=== PATIENT | female | born 1955 | race African-American/Black ===

== ENCOUNTER 2022-09-02 17:18 | Emergency (ER) | payer OTHER ==
[~2022-09-02] VITALS: Ht 162.6 cm; Wt 59.0 kg
[2022-09-02] MEDS ORDERED: ONDANSETRON HCL 4MG/2ML INJ IV STA (20:06)
[2022-09-02] MEDS ORDERED: MORPHINE SULFATE 4 MG/ML CPJ (NOT FOR IM USE) IV STA (20:06)
[2022-09-02 20:26] LABS: BASOPHILS % 1.1 % (0.0-2.0); EOSINOPHILS % 2.4 % (0.0-5.0); HEMATOCRIT. 29.2 % (36.0-48.0); HEMOGLOBIN. 9.5 g/dL (12.0-16.0); LYMPHOCYTES % 29.8 % (20.0-50.0); MEAN CORPUSCULAR HEMOGLOBIN 32.4 pg (28.0-32.0); MEAN CORPUSCULAR VOLUME 99.9 fL (81.0-99.0); MEAN PLATELET VOLUME 8.8 fl (7.4-10.4); MONOCYTES % 11.4 % (2.0-8.0); NEUTROPHILS % 55.3 % (40.0-76.0); PLATELET 103 x1000/uL (130-400); RED BLOOD CELL COUNT 2.92 mill/uL (4.2-5.4); RED CELL DISTRIBUTION WIDTH 16.8 % (11.6-14.6)
[2022-09-02 20:30] LABS: CHLORIDE 104 mEq/L (98-107)
[2022-09-02 21:05] LABS: CLARITY URINE CLEAR (CLEAR); COLOR URINE YELLOW (YELLOW); KETONES URINE NEGATIVE (NEGATIVE); LEUKOCYTE ESTERASE URINE NEGATIVE (NEGATIVE); NITRITE URINE NEGATIVE (NEGATIVE); OCCULT BLOOD URINE NEGATIVE (NEGATIVE); PROTEIN URINE NEGATIVE (NEGATIVE); SPECIFIC GRAVITY URINE 1.039 (1.005-1.030); UROBILINOGEN URINE 0.2 E.U./dL (0.2-1.0)
[2022-09-02] MEDS ORDERED: SODIUM CHLORIDE 0.9% 1,000 ML IV ONE (22:00)
[2022-09-02 22:45] VITALS: BP 138/77
[2022-09-02] MEDS ORDERED: IOHEXOL-300 100 ML BOTTLE ONE (22:52)
== END 2022-09-02 22:52 | disposition short-term general hospital (02) ==
LOC: ER 17:18
DX: C25.9 Malignant neoplasm of pancreas, unspecified (principal); E11.65 Type 2 diabetes mellitus with hyperglycemia; R18.8 Other ascites; I10 Essential (primary) hypertension; J44.9 Chronic obstructive pulmonary disease, unspecified; Z79.4 Long term (current) use of insulin
CPT/HCPCS: 36415; 71045; 74177; 80053; 81003; 83690; 83880; 84484; 85025; 96361; 96374; 96375; 99285; J2270; J2405; J7030; Q9967